=== PATIENT | male | born 1965 | race Caucasian/White ===

== ENCOUNTER 2019-06-15 15:58 | Inpatient (IN) | payer OTHER ==
--- NOTE | 2019-06-15 17:22 | ED ---
Recheck HPI - General Chief Complaint: Shortness of Breath Stated Complaint: R lower leg celulitis, Pneumonia Time Seen by Provider: 06/15/19 16:21 Source: EMS, RN notes reviewed Mode of arrival: EMS Limitations: altered mental status - Related Data Home Medications Medication Instructions Recorded Confirmed ALPRAZolam [Xanax] 0.5 mg PO TID PRN 12/10/13 12/10/13 Benztropine Mesylate 1 mg PO QAM 12/10/13 12/10/13 Benztropine Mesylate 2 mg PO HS 12/10/13 12/10/13 Divalproex Sodium 250 mg PO HS 12/10/13 12/10/13 Divalproex Sodium [Divalproex 500 mg PO HS 12/10/13 12/10/13 Sodium ER] FLUoxetine HCL [PROzac] 20 mg PO DAILY 12/10/13 12/10/13 Tamsulosin HCl [Flomax] 0.4 mg PO DAILY 12/10/13 12/10/13 buPROPion SR [Wellbutrin SR] 100 mg PO BID 12/10/13 12/10/13 risperiDONE [RisperDAL] 2 mg PO BID 12/10/13 12/10/13 Allergies Allergy/AdvReac Type Severity Reaction Status Date / Time Penicillins Allergy Unknown Verified 06/15/19 16:00 thioridazine HCl Allergy Unknown Verified 06/15/19 16:00 [From [facility]] Review of Systems ROS Statement: Those systems with pertinent positive or pertinent negative responses have been documented in the HPI. ROS Other: All systems not noted in ROS Statement are negative. Past Medical History Past Medical History: Asthma, GERD/Reflux Additional Past Medical History / Comment(s): MILD MENTAL RETARDATION, EXHIBITIONISM, CONSTIPATION, MILD HEARING LOSS, FNGAL TOE NAILS History of Any Multi-Drug Resistant Organisms: None Reported Past Surgical History: Orthopedic Surgery Past Psychological History: Bipolar Smoking Status: Never smoker Past Alcohol Use History: None Reported Past Drug Use History: None Reported General Exam Limitations: altered mental status Course Vital Signs 06/15/19 06/15/19 06/15/19 16:00 16:22 18:07 Temperature 99.0 F Pulse Rate 100 Respiratory 22 20 18 Rate Blood Pressure 130/92 O2 Sat by Pulse 96 Oximetry Disposition Clinical Impression: Acute exacerbation of chronic obstructive pulmonary disease, Community acquired pneumonia, Cellulitis of right leg, Nosocomial pneumonia Disposition: ADMITTED IP TO THIS HOSP Condition: Fair Is patient prescribed a controlled substance at d/c from ED?: No
[2019-06-15] MEDS ORDERED: ALBUTEROL NEBULIZED 2.5 MG/3 ML INHALATION PRN (17:24)
[2019-06-15] MEDS ORDERED: PNEUMONIA PROTOCOL UTILIZED 1 EACH MISC PO PRN (17:24)
[2019-06-15] MEDS ORDERED: VANCOMYCIN IV PER PHARMACY 1 EACH MISC MISCELLANE PRN (17:26)
[2019-06-15] MEDS ORDERED: VANCOMYCIN 2,250 MG in SODIUM CHLORIDE 0.9% 500 ML 500 ML IVPB STA (17:37)
--- NOTE | 2019-06-15 18:42 | XR ---
EXAMINATION TYPE: XR chest 2V DATE OF EXAM: 06/15/2019 COMPARISON: 06/15/2019 HISTORY: Chest pain. Cough. TECHNIQUE: 2 views FINDINGS: There is some atelectasis at the lung bases. There is no heart failure. There is poor inspi ration. Bony thorax is intact. IMPRESSION: There is some mild infiltrate and atelectasis at the lung bases and mainly on the left si de that is slightly worse than exam 6 hours ago. No heart failure.
[2019-06-15] MEDS ORDERED: ACETAMINOPHEN TAB 500 MG TAB PO PRN (19:23)
[2019-06-15] MEDS ORDERED: DOCUSATE 100 MG CAP PO PRN (19:23)
[2019-06-15] MEDS ORDERED: POLYETHYLENE GLYCOL 3350 17 GM POWD.PACK PO PRN (19:23)
--- NOTE | 2019-06-15 19:26 | P.HPIM ---
History of Present Illness 49-year-old male who was sent in here for the treatment of right lower leg Cellulitis and possible laceration pneumonia. Patient denied and effusions patient denied any cough evidently he was comparing of cough and shortness of breath he denied any symptoms to me. Patient had a chest x-ray which were showing bilateral infiltrates as per the reading unfortunately I am unable to open of the images. Because of which I'll continue antibody for now until I can review the images. Patient was started on vancomycin. Patient was on Keflex as an outpatient with some improvement insulin this patient has significant redness local is of temperature light of the right lower exudative patient does have until dilation but tach and appropriately answer questions. Patient baseline creatinine is around 1 his creatinine presently is 1.5 patient was started on IV fluids Review of Systems REVIEW OF SYSTEMS: CONSTITUTIONAL: No fever, no malaise, no fatigue. HEENT: No recent visual problems or hearing problems. Denied any sore throat. CARDIOVASCULAR: No chest pain, orthopnea, PND, no palpitations, no syncope. PULMONARY: No shortness of breath, no cough, no hemoptysis. GASTROINTESTINAL: No diarrhea, no nausea, no vomiting, no abdominal pain. NEUROLOGICAL: No headaches, no weakness, no numbness. HEMATOLOGICAL: Denies any bleeding or petechiae. GENITOURINARY: Denies any burning micturition, frequency, or urgency. MUSCULOSKELETAL/RHEUMATOLOGICAL: Denies any joint pain, swelling, or any muscle pain. It doesn't right lower exudate as mentioned above ENDOCRINE: Denies any polyuria or polydipsia. The rest of the 14-point review of systems is negative. Past Medical History Past Medical History: Asthma, GERD/Reflux Additional Past Medical History / Comment(s): MILD MENTAL RETARDATION, EXHIBITIONISM, CONSTIPATION, MILD HEARING LOSS, FNGAL TOE NAILS History of Any Multi-Drug Resistant Organisms: None Reported Past Surgical History: Orthopedic Surgery Past Psychological History: Bipolar Smoking Status: Never smoker Past Alcohol Use History: None Reported Past Drug Use History: None Reported Medications and Allergies Home Medications Medication Instructions Recorded Confirmed Type ALPRAZolam [Xanax] 0.5 mg PO TID@0600,1700,2100 12/10/13 06/15/19 History Divalproex Sodium 250 mg PO HS@2100 12/10/13 06/15/19 History FLUoxetine HCL [PROzac] 20 mg PO HS@2100 06/22/14 12/26/19 History Tamsulosin HCl [Flomax] 0.4 mg PO HS@209912/10/13 06/15/19 History buPROPion SR [Wellbutrin SR] 100 mg PO BID@0600,209912/10/13 06/15/19 History Acetaminophen Tab [Tylenol Tab] 1,000 mg PO Q4H PRN 06/15/19 06/15/19 History Benztropine Mesylate [Cogentin] 0.5 mg PO TID@0600,1700,209906/15/19 06/15/19 History Divalproex Sodium [Depakote] 1,000 mg PO BID@0600,209906/15/19 06/15/19 History Docusate [Colace] 100 mg PO BID PRN 06/15/19 06/15/19 History FLUoxetine HCL [PROzac] 40 mg PO DAILY@0600 06/15/19 06/15/19 History Meloxicam [Mobic] 15 mg PO DAILY@0600 06/15/19 06/15/19 History Multivitamins, Thera [Multivitamin 1 tab PO DAILY@0600 06/15/19 06/15/19 History (formulary)] Neomycin/Bacitracin/Polymyxinb 1 applic TOPICAL TID 06/15/19 06/15/19 History [Neosporin Ointment] Nitrofurantoin Monohyd/M-Cryst 100 mg PO BID@0600,209906/15/19 06/15/19 History [Macrobid] Polyethylene Glycol 3350 [Miralax] 17 gm PO BID PRN 06/15/19 06/15/19 History diphenhydrAM/PE/DM/ACETAMIN/GG 2 tab PO Q4H PRN 06/15/19 06/15/19 History [Mucinex Fast-Max Day-Nite Cold] risperiDONE [RisperDAL] 4 mg PO BID@0600,209906/15/19 06/15/19 History Allergies Allergy/AdvReac Type Severity Reaction Status Date / Time Penicillins Allergy Unknown Verified 06/15/19 18:38 thioridazine HCl Allergy Unknown Verified 06/15/19 18:38 [From [facility]] Physical Exam Vitals: Vital Signs Temp Pulse Resp BP Pulse Ox 06/15/19 18:45 99.6 F 77 20 138/75 96 06/15/19 18:07 18 06/15/19 16:22 20 06/15/19 16:00 99.0 F 100 22 130/92 96 Intake and Output 06/15/19 06/15/19 06/15/19 06:59 14:59 22:59 Other: Weight 97.522 kg PHYSICAL EXAMINATION: GENERAL: The patient is alert and oriented x3, not in any acute distress. Well developed, well nourished. HEENT: Pupils are round and equally reacting to light. EOMI. No scleral icterus. No conjunctival pallor. Normocephalic, atraumatic. No pharyngeal erythema. No thyromegaly. CARDIOVASCULAR: S1 and S2 present. No murmurs, rubs, or gallops. PULMONARY: Chest is clear to auscultation, no wheezing or crackles. ABDOMEN: Soft, nontender, nondistended, normoactive bowel sounds. No palpable organomegaly. MUSCULOSKELETAL: No joint swelling or deformity. EXTREMITIES: No cyanosis, clubbing, or pedal edema. Has redness in the right leg NEUROLOGICAL: Gross neurological examination did not reveal any focal deficits. SKIN: No rashes. Assessment and Plan Plan: -Celexa the lower exudate: Patient will be started on Vanco mycin patient failed outpatient therapy infectious disease will be consulted acute renal failure prerenal azotemia expected given to improve with IV fluids and repeat basic metabolic profile will be obtained -mental retardation and patient will because of which patient is on multiple antipsychotic medications which will be resumed and continued 3 chronic constipation -Seizure disorder -Gastroesophageal reflux disease -Possibility of pneumonia cannot completely rule it out patient will be can you done cefepime for now but I do not believe levofloxacin is deciliter liver this can you patient is ALLERGIC to penicillins I reviewed the images tomorrow as I cannot open the images today until then cefepime will be continued.
[2019-06-15 20:06] LABS: Vancomycin,Random 9.2 ug/mL
[2019-06-15] MEDS: FLUoxetine HCL 20 MG CAP PO SCH (20:46)
[2019-06-15] MEDS: BENZTROPINE MESYLATE 0.5 MG TAB PO SCH (20:46)
[2019-06-15] MEDS: buPROPion SR 100 MG TABLET.ER PO SCH (20:46)
[2019-06-15] MEDS: risperiDONE 2 MG TAB PO SCH (20:46)
[2019-06-15] MEDS: TAMSULOSIN 0.4 MG CAP.ER.24H PO SCH (20:46)
[2019-06-15] MEDS: DIVALPROEX 500 MG TABLET.DR PO SCH (20:47)
[2019-06-15] MEDS: DIVALPROEX 250 MG TABLET.DR PO SCH (20:47)
[2019-06-15] MEDS: NEOMYCIN-BACITRACIN-POLY OINT 14 GM TUBE TOPICAL SCH (20:54)
[2019-06-15] MEDS: IPRATROPIUM-ALBUTEROL 3 ML NEB INHALATION SCH (20:59)
[2019-06-15] MEDS: CEFEPIME 1 GM in SODIUM CHLORIDE 0.9% 50 ML IVPB SCH (22:21)
[2019-06-15] MEDS: VANCOMYCIN 2,000 MG in SODIUM CHLORIDE 0.9% 500 ML 500 ML IVPB SCH (23:02)
[2019-06-16] MEDS: buPROPion SR 100 MG TABLET.ER PO SCH ×2 (05:41→21:58)
[2019-06-16] MEDS: BENZTROPINE MESYLATE 0.5 MG TAB PO SCH ×3 (05:41→21:59)
[2019-06-16] MEDS: risperiDONE 2 MG TAB PO SCH ×2 (05:41→21:59)
[2019-06-16] MEDS: FLUoxetine HCL 20 MG CAP PO SCH ×2 (05:41→21:59)
[2019-06-16] MEDS: DIVALPROEX 500 MG TABLET.DR PO SCH ×2 (05:41→22:00)
[2019-06-16] MEDS: IPRATROPIUM-ALBUTEROL 3 ML NEB INHALATION SCH ×4 (08:08→20:55)
--- NOTE | 2019-06-16 08:30 | XR ---
EXAMINATION TYPE: XR chest 2V DATE OF EXAM: 06/16/2019 COMPARISON: 06/15/2019 HISTORY: Shortness of breath TECHNIQUE: Frontal and lateral views of the chest are obtained. FINDINGS: Scattered senescent parenchymal changes noted. Hyperinflation compatible with COPD. Patchy basilar infiltrates persist. Correlate for pneumonia. Progress studies are advised Heart size is stable. Mediastinal structures are stable and grossly unremarkable. No evidence for hilar prominence. Degenerative changes dorsal spine. IMPRESSION: 1. Patchy basilar infiltrates persist. Correlate for pneumonia. Progress studies are advised
[2019-06-16 08:54] LABS: HCT 31.7 % (39.0-53.0); HGB 10.7 gm/dL (13.0-17.5); MCH 31.9 pg (25.0-35.0); MCHC 33.7 g/dL (31.0-37.0); MCV 94.6 fL (80.0-100.0); Mean Platelet Volume 8.3; Platelet Count 197 k/uL (150-450); RBC 3.35 m/uL (4.30-5.90); RDW 12.7 % (11.5-15.5)
[2019-06-16 09:06] LABS: Calcium 8.7 mg/dL (8.4-10.2); Potassium 4.2 mmol/L (3.5-5.1)
[2019-06-16] MEDS: CEFEPIME 1 GM in SODIUM CHLORIDE 0.9% 50 ML IVPB SCH (10:01)
[2019-06-16] MEDS: ENOXAPARIN 40 MG/0.4 ML SYRINGE SQ SCH (10:03)
[2019-06-16] MEDS: NEOMYCIN-BACITRACIN-POLY OINT 14 GM TUBE TOPICAL SCH ×3 (10:03→21:58)
[2019-06-16] MEDS: VANCOMYCIN 2,000 MG in SODIUM CHLORIDE 0.9% 500 ML 500 ML IVPB SCH (10:04)
--- NOTE | 2019-06-16 17:30 | P.PN ---
Subjective Patient was admitted facilities of the right lower extremity which is significantly improved patient was also believed to have aspiration pneumonia although patient doesn't have any clinical symptoms of that and I reviewed the chest x-ray do not believe patient has aspiration pneumonia from that patient does have some chronic changes with just some small mild bilateral pleural effusions. Patient's vancomycin. He will be discontinued and patient was started on ceftezolin and he probably can be discharged tomorrow on Keflex. Constitutional: Denied any fatigue denied any fever. Cardio vascular: denied any chest pain, palpitations Gastrointestinal denied any nausea vomiting Pulmonary: Denied any shortness of breath cough Neurologic denied any new focal deficits All inpatient medications were reviewed and appropriate changes in these med ications as dictated in the interval history and assessment and plan. Objective - Vital Signs Vital signs: Vital Signs Temp 97.1 F L 06/16/19 12:06 Pulse 91 06/16/19 12:06 Resp 20 06/16/19 12:06 BP 138/79 06/16/19 12:06 Pulse Ox 95 06/16/19 12:06 Intake & Output 06/15/19 06/16/19 06/16/19 18:59 06:59 18:59 Intake Total 550 Balance 550 Weight 102 kg Intake: Intake, IV Titration 550 Amount Cefepime 1 gm In Sodium 50 Chloride 0.9% 50 ml @ 100 mls/hr IVPB Q12HR [facility] Rx #:[id number] Vancomycin 2,000 mg In 500 Sodium Chloride 0.9% 500 ml 500 ml @ 167 mls/hr IVPB Q12HR [facility] Rx#: [id number] Other: Voiding Method Toilet Toilet # Voids 1 1 # Bowel Movements 1 - Exam PHYSICAL EXAMINATION: GENERAL: The patient is alert and oriented x3, not in any acute distress. Well developed, well nourished. HEENT: Pupils are round and equally reacting to light. EOMI. No scleral icterus. No conjunctival pallor. Normocephalic, atraumatic. No pharyngeal erythema. No thyromegaly. CARDIOVASCULAR: S1 and S2 present. No murmurs, rubs, or gallops. PULMONARY: Chest is clear to auscultation, no wheezing or crackles. ABDOMEN: Soft, nontender, nondistended, normoactive bowel sounds. No palpable organomegaly. MUSCULOSKELETAL: No joint swelling or deformity. EXTREMITIES: No cyanosis, clubbing, or pedal edema. Significant improvement in the circumferential redness of the right leg NEUROLOGICAL: Gross neurological examination did not reveal any focal deficits. SKIN: No rashes. - Labs CBC & Chem 7: 06/16/19 08:33 06/16/19 08:33 Labs: Abnormal Lab Results - Last 24 Hours (Table) 06/15/19 06/16/19 06/16/19 Range/Units 19:24 08:33 08:33 WBC 17.0 H (3.8-10.6) k/uL RBC 3.35 L (4.30-5.90) m/uL Hgb 10.7 L (13.0-17.5) gm/dL Hct 31.7 L (39.0-53.0) % Sodium 136 L (137-145) mmol/L BUN 27 H (9-20) mg/dL Creatinine 1.31 H (0.66-1.25) mg/dL Assessment and Plan Plan: -Cellulitis of the right lower extremity improving symptoms antibiotics as mentioned above chronic constipation -Seizure disorder -Gastroesophageal reflux disease -Cefepime was discontinued as there is no evidence of aspiration pneumonia
[2019-06-16] MEDS ORDERED: LEVOFLOXACIN 750MG-D5W PMX 750 MG in DEXTROSE/WATER 1 150ML.BAG IVPB SCH (18:00)
[2019-06-16] MEDS: TAMSULOSIN 0.4 MG CAP.ER.24H PO SCH (21:58)
[2019-06-16] MEDS: DIVALPROEX 250 MG TABLET.DR PO SCH (21:59)
[2019-06-17] MEDS: buPROPion SR 100 MG TABLET.ER PO SCH ×2 (06:10→21:05)
[2019-06-17] MEDS: risperiDONE 2 MG TAB PO SCH ×2 (06:10→21:04)
[2019-06-17] MEDS: FLUoxetine HCL 20 MG CAP PO SCH ×2 (06:11→21:05)
[2019-06-17] MEDS: DIVALPROEX 500 MG TABLET.DR PO SCH ×2 (06:11→21:04)
[2019-06-17] MEDS: BENZTROPINE MESYLATE 0.5 MG TAB PO SCH ×3 (06:11→21:05)
[2019-06-17 07:27] LABS: HCT 34.6 % (39.0-53.0); HGB 11.1 gm/dL (13.0-17.5); MCH 31.1 pg (25.0-35.0); MCHC 32.2 g/dL (31.0-37.0); MCV 96.6 fL (80.0-100.0); Mean Platelet Volume 8.3; Platelet Count 194 k/uL (150-450); RBC 3.58 m/uL (4.30-5.90); RDW 12.7 % (11.5-15.5); WBC 13.3 k/uL (3.8-10.6)
[2019-06-17 07:42] LABS: African American GFR (CKD) >90 (>60 ml/min/1.73 sqM); Anion Gap 7 mmol/L; Blood Urea Nitrogen 19 mg/dL (9-20); Carbon Dioxide 27 mmol/L (22-30); Chloride 103 mmol/L (98-107); Glucose 94 mg/dL (74-99); Non-African American GFR(CKD) >90 (>60 ml/min/1.73 sqM); Potassium 3.7 mmol/L (3.5-5.1); Sodium 137 mmol/L (137-145)
[2019-06-17] MEDS: ENOXAPARIN 40 MG/0.4 ML SYRINGE SQ SCH (08:27)
[2019-06-17] MEDS: NEOMYCIN-BACITRACIN-POLY OINT 14 GM TUBE TOPICAL SCH ×3 (08:27→21:06)
[2019-06-17] MEDS: IPRATROPIUM-ALBUTEROL 3 ML NEB INHALATION SCH ×4 (08:54→22:15)
--- NOTE | 2019-06-17 10:39 | CONS ---
CONSULTATION DATE OF SERVICE: 06/16/2019. REASON FOR CONSULTATION: Right lower extremity cellulitis with question of pneumonia. HISTORY OF PRESENT ILLNESS: The patient is a 54-year-old male, apparently initially evaluated at an outside facility where the patient presented with increasing shortness of breath and cough and swelling and redness of his right lower extremity that apparently started a few days before he presented to hospital. The patient denies any history of any trauma. Pain to the right leg is more of a dull aching 2 to 3 out of 10 and no radiation with associated swelling, redness, currently with no open wound or any drainage and no history of any trauma. The patient also complaining of some shortness of breath. Chest x-ray at an outside facility shows bilateral basilar infiltrate. The patient did have a low-grade fever and elevated white count. The patient has been diagnosed with right lower extremity cellulitis as well as pneumonia. The patient has been subsequently transferred to the [facility] for further management of his condition. The patient was started on vancomycin, cefepime. Infectious Disease was consulted for further recommendations regarding antibiotic therapy. REVIEW OF SYSTEMS: Positive points have been mentioned in HPI. Rest of systems negative. PAST MEDICAL HISTORY: Past medical history significant for mild mental retardation, history of asthma and gastroesophageal reflux disease, constipation, and bipolar disorder. PAST SURGICAL HISTORY: Orthopedic surgeries. SOCIAL HISTORY: No history of smoking, drinking or drug use. FAMILY HISTORY: No pertinent findings noticed. ALLERGIES: TO PENICILLIN, however, has tolerated cephalosporins without any problem. MEDICATIONS: Include the patient is currently on Tylenol, Ventolin, DuoNeb, Xanax, Cogentin, Wellbutrin, cefazolin 2 g q.8 hours, Depakote, Lovenox, Prozac, MiraLAX, Risperdal. PHYSICAL EXAMINATION: Blood pressure is 131/81 with a pulse of 76, temperature 98.2. He is 93% on room air. General description is a middle-aged male lying in bed in no distress. No tachypnea or accessory muscles of respiration use. HEENT: Examination shows slight pallor. No scleral icterus. Oral mucosal membranes are moist with no pharyngeal erythema or thrush. Neck: Trachea central. No thyromegaly. Lungs: Unlabored breathing. Clear to auscultation. No wheeze or crackles. Heart S1, S2. Regular rate and rhythm. ABDOMEN: Soft, no tenderness. No guarding or rigidity. Extremities: Right leg mostly posteriorly did have swelling and redness. Warm to touch. No open wound or any drainage. Neurological: Patient is awake, alert, oriented times three. Mood and affect normal. LABS: Hemoglobin is 10.7, white count 29916. BUN of 27, creatinine 1.14. Chest x-ray with mostly bibasilar atelectasis. DIAGNOSTIC IMPRESSION AND PLAN: 1. Patient admitted to the hospital with increasing pain, swelling, redness of right lower extremity, likely with cellulitis with diffuse swelling and redness, likely streptococcal disease. Clinically doubt MRSA gram-negative infection. 2. The patient with some shortness of breath, currently breathing comfortably on room air with no fever. Chest x-ray finding more likely representing atelectasis rather than pneumonia. PLAN: 1. Cefepime. Vancomycin discontinued as per discussion with the admitting team. 2. We will start the patient on cefazolin 2 g q.8 hours. 3. Marked the area of redness on the right leg. 4. We will follow up on clinical condition and culture to further adjust medication if needed. Thank you for this consultation. We will follow this patient along with you. MMODL / IJN: [id number] /
[2019-06-17] MEDS ORDERED: NYSTAT-TRIAMCIN 100,000-0.1 UNIT/GM-% CREAM 30 GM TUBE TOPICAL SCH (15:15)
[2019-06-17] MEDS ORDERED: guaiFENesin-DM 600/30MG 1 EACH TAB.ER.12H PO PRN (16:24)
[2019-06-17] MEDS: NYSTATIN 100,000UNIT/GM CREAM 30 GM TUBE TOPICAL SCH (16:52)
[2019-06-17] MEDS: TRIAMCINOLONE 0.1% CREAM 80 GM TUBE TOPICAL SCH (16:52)
--- NOTE | 2019-06-17 18:32 | PN ---
PROGRESS NOTE DATE OF SERVICE: 06/17/2019 REASON FOR FOLLOWUP: Right lower extremity cellulitis. INTERVAL HISTORY: The patient is currently afebrile. The patient is breathing comfortably. The patient denies having any chest pain or any cough. No nausea, vomiting. No abdominal pain and MMODL / IJN: [id number] /
[2019-06-17] MEDS ORDERED: VANCOMYCIN TROUGH DUE 1 EACH MISC MISCELLANE ONE (20:00)
[2019-06-17] MEDS: ALPRAZolam 0.5 MG TAB PO PRN (21:02)
[2019-06-17] MEDS: TAMSULOSIN 0.4 MG CAP.ER.24H PO SCH (21:03)
[2019-06-17] MEDS: NITROFURANTOIN MONOHYD/M-CRYST 100 MG CAP PO SCH (21:03)
[2019-06-17] MEDS: DIVALPROEX 250 MG TABLET.DR PO SCH (21:04)
--- NOTE | 2019-06-17 21:14 | PN ---
PROGRESS NOTE DATE OF SERVICE: 05/18/2019 This 54-year-old gentleman was admitted with significant cellulitis of the right lower extremity being treated with IV antibiotics. The patient was also suspected to have aspiration pneumonia. Chest x-ray showed possibly atelectasis. The patient is being closely monitored at this time. The patient is on empiric bronchodilators also. Patient closely monitored. PAST MEDICAL HISTORY: Reviewed. REVIEW OF SYSTEMS: CARDIOVASCULAR SYSTEM: No palpitations. RESPIRATORY: As mentioned earlier. GI: No nausea. : No dysuria. NERVOUS SYSTEM: No numbness or weakness. CURRENT MEDICATIONS: 1. Tylenol. 2. Ventolin. 3. DuoNeb nebulizer. 4. Xanax. 5. Cogentin. 6. Wellbutrin XL. 7. Cefazolin. 8. Depakote. 9. Colace. 10.Lovenox. 11.Prozac. 12.Replacement protocol. 13.Risperdal. 14.Flomax. 15.Kenalog. Dose and schedule as well as route of administration was reviewed. PHYSICAL EXAM: Patient is alert, oriented x3. Pulse 72, blood pressure 139/75, respirations 17, temperature 97.4, pulse ox 94% on room air skin: HEENT: Conjunctivae normal. Oral mucosa moist. NECK: No jugular venous distention. No lymph node enlargement. CARDIOVASCULAR: S1, S2. RESPIRATORY: Diminished breath sounds at the bases. Bilateral scattered rhonchi and crackles. ABDOMEN: Soft, nontender. No masses palpable. LEGS: Right leg cellulitis present. NERVOUS SYSTEM: No focal deficits. LABS: At this time shows WBC 13.2, hemoglobin 11.3. ASSESSMENT: 1. Acute severe cellulitis of the right leg with possible SIRS. 2. Increased WBC. 3. Atelectasis, pneumonia unlikely. 4. Seizure disorder. 5. Gastroesophageal reflux disease. 6. Increased WBC. 7. Anemia of chronic disease. 8. Obesity with body mass index 30.5. 9. History of asthma. 10.Mild mental retardation and extubation. 11.History of constipation. 12.History of mild hearing loss. 13.History of bipolar. RECOMMENDATIONS AND DISCUSSION: In this 54-year-old gentleman who presented with multiple complex medical issues, we will monitor the patient closely, continue the current medication and symptomatic treatment. Will continue the broad-spectrum IV antibiotics. Continue the bronchodilators. Continue rest of medications. DVT prophylaxis. Otherwise, resume the home medications. Closely follow with Infectious Disease and further recommendations to follow. MMODL / IJN: [id number] /
[2019-06-18] MEDS: NITROFURANTOIN MONOHYD/M-CRYST 100 MG CAP PO SCH (05:22)
[2019-06-18] MEDS: DIVALPROEX 500 MG TABLET.DR PO SCH (05:22)
[2019-06-18] MEDS: buPROPion SR 100 MG TABLET.ER PO SCH (05:22)
[2019-06-18] MEDS: BENZTROPINE MESYLATE 0.5 MG TAB PO SCH ×2 (05:23→16:32)
[2019-06-18] MEDS: risperiDONE 2 MG TAB PO SCH (05:23)
[2019-06-18] MEDS: FLUoxetine HCL 20 MG CAP PO SCH (05:23)
[2019-06-18] MEDS ORDERED: MELOXICAM 7.5 MG TAB PO SCH (06:00)
[2019-06-18] MEDS ORDERED: MULTIVITAMINS, THERA 1 EACH TAB PO SCH (06:00)
[2019-06-18] MEDS: ENOXAPARIN 40 MG/0.4 ML SYRINGE SQ SCH (07:53)
[2019-06-18] MEDS: NYSTATIN 100,000UNIT/GM CREAM 30 GM TUBE TOPICAL SCH (07:54)
[2019-06-18] MEDS: TRIAMCINOLONE 0.1% CREAM 80 GM TUBE TOPICAL SCH (07:54)
[2019-06-18] MEDS: NEOMYCIN-BACITRACIN-POLY OINT 14 GM TUBE TOPICAL SCH (07:54)
[2019-06-18 07:55] LABS: African American GFR (CKD) >90 (>60 ml/min/1.73 sqM); Non-African American GFR(CKD) >90 (>60 ml/min/1.73 sqM)
[2019-06-18] MEDS: IPRATROPIUM-ALBUTEROL 3 ML NEB INHALATION SCH ×3 (10:39→16:20)
[2019-06-18 12:05] VITALS: BP 124/76; PULSE 93; RESP 17; TEMP 98.8
--- NOTE | 2019-06-18 15:48 | PN ---
PROGRESS NOTE DATE OF SERVICE: 06/18/2019. REASON FOR FOLLOWUP: Right lower extremity cellulitis. INTERVAL HISTORY: The patient is currently afebrile, has been breathing comfortably. Denies any chest pain or any cough. No nausea, vomiting or pain to the right leg area. PHYSICAL EXAMINATION: Blood pressure 124/76, pulse of 93, temperature 98.8. He is 94% on room air. General description is a middle-aged male up in the room in no distress. Respiratory system: Unlabored breathing, clear to auscultation anteriorly. Heart S1, S2. Regular rate and rhythm. Abdomen soft, no tenderness. Right leg has been dressed up by the RN, did mention overall improvement in the redness. LABS: Creatinine 0.90. No CBC was done today. DIAGNOSTIC IMPRESSION AND PLAN: Patient with acute right lower extremity cellulitis with diffuse swelling with disease, improvement on cefazolin. Antibiotic was switched over to Keflex 500 mg p.o. 3 times a day for 7 days. Script sent to pharmacy. Local care to continue with Mycolog cream and Kaden wrap to keep the swelling down. MMODL / IJN: [id number] /
[2019-06-18] MEDS: ALPRAZolam 0.5 MG TAB PO PRN (16:32)
--- NOTE | 2019-06-19 07:36 | DS ---
DISCHARGE SUMMARY DATE OF SERVICE: 06/18/2019 FINAL DIAGNOSES: 1. Acute severe cellulitis of the right leg with possible systemic inflammatory response syndrome. 2. Increased WBC. 3. Atelectasis, pneumonia unlikely. 4. Seizure disorder history. 5. History of gastroesophageal reflux disease. 6. Anemia of chronic disease. 7. Obesity with body mass index of 30.5. 8. History of asthma. 9. Mild mental retardation. 10.History of constipation. 11.History of mild hearing loss. 12.History of bipolar. DISCHARGE DISPOSITION: The patient will be discharged in stable condition with guarded prognosis. Discharge cleared by Dr. House, Infectious Disease. HISTORY OF PRESENT ILLNESS: This 54-year-old gentleman with a past medical history of multiple medical problems admitted with acute severe cellulitis. The patient was initially suspected pneumonia, which was excluded and possible atelectasis considered. Patient treated empirically with antibiotics. Patient improved significantly. Dr. House saw the patient. Recommended the patient to be discharged and follow up in the outpatient setting. On exam, vitals are stable. CARDIOVASCULAR: S1, S2 muffled. ABDOMEN: Soft. NERVOUS SYSTEM: No focal deficit. EXAMINATION OF THE RIGHT LEG: Cellulitis present. DISCHARGE ADVICE: 1. Diet is cardiac. 2. Activity limited until followup. 3. Follow up with Dr. Louie Doe in 2 to 3 days. 4. Follow up with Infectious Disease as recommended. Medications are: 1. Cogentin 0.5 mg p.o. t.i.d. 2. Colace p.r.n. 3. Depakote 1000 mg p.o. b.i.d. as before and 250 mg p.o. at bedtime. 4. Flomax 0.4 at bedtime. 5. Nitrofurantoin as before. 6. MiraLAX 17 grams p.o. b.i.d. 7. Mobic 15 mg p.o. daily. 8. Diphenhydramine DM p.r.n. as before. 9. Multivitamins 1 p.o. daily. 10.Neomycin bacitracin local application. 11.Prozac 20 mg p.o. at bedtime and 40 mg p.o. daily. 12.Risperdal 4 mg p.o. b.i.d. 13.Tylenol 1000 mg q.4 p.r.n. 14.Wellbutrin SR 100 mg p.o. . 15.Xanax 0.5 mg t.i.d. 16.Keflex 500 mg q.8 for 10 days. 17.Albuterol 2 puffs q.i.d. and p.r.n. Once again the patient will be discharged in stable condition with guarded prognosis. MMSIMEON / IJN: [id number] / MTDD
== END 2019-06-18 16:35 | disposition home or self-care (01) | DRG 603 ==
LOC: EEVIPCON 15:58 → EC 15:58 → 5NMEDONC 17:24
PROVIDERS: ADMIT Hospitalist; ATTEND Hospitalist
DX: L03.115 Cellulitis of right lower limb (principal); J90 Pleural effusion, not elsewhere classified; J98.11 Atelectasis; N17.9 Acute kidney failure, unspecified; D63.8 Anemia in other chronic diseases classified elsewhere; E66.9 Obesity, unspecified; F31.9 Bipolar disorder, unspecified; F70 Mild intellectual disabilities; G40.909 Epilepsy, unspecified, not intractable, without status epilepticus; H91.90 Unspecified hearing loss, unspecified ear; J45.909 Unspecified asthma, uncomplicated; K21.9 Gastro-esophageal reflux disease without esophagitis; K59.09 Other constipation; F65.2 Exhibitionism; B35.1 Tinea unguium; Z79.899 Other long term (current) drug therapy; Z79.1 Long term (current) use of non-steroidal anti-inflammatories (NSAID); Z68.30 Body mass index [BMI] 30.0-30.9, adult; Z88.0 Allergy status to penicillin; Z88.8 Allergy status to other drugs, medicaments and biological substances
CPT/HCPCS: 71046; 80048; 80202; 82565; 85027; 87040; 99285

== ENCOUNTER → 2023-12-08 | Outpatient (CLI) | payer OTHER ==
--- NOTE | 2023-12-08 13:50 | FL ---
Exam Date: 12/08/2023 12:16 PM. Modified barium swallow for dysphagia. Consistencies administered: Various consistency of barium. Fluoro time: 51 s No images were sent to PACS. Please see speech pathology report. DAP: Not reported mGym2 Gycm2
== END | disposition home or self-care (01) ==
LOC: RADFLMAIN 11:07
PROVIDERS: ATTEND Family Medicine
DX: R13.12 Dysphagia, oropharyngeal phase (principal)
CPT/HCPCS: 74230